=== PATIENT | female | born 1990 | race African-American/Black ===

== ENCOUNTER 2025-01-05 17:00 | Inpatient (IN) | payer MEDICARE ==
[~2025-01-05] VITALS: Ht 152.4 cm; Wt 89.8 kg
[2025-01-05] MEDS ORDERED: ZOLPIDEM TARTRATE 10 MG TABLET PO PRN (18:15)
[2025-01-05 18:45] LABS: COVID AG,FIA SOURCE NASAL SWAB
[2025-01-05 18:51] LABS: APPEARANCE,URINE CLEAR (CLEAR); GLUCOSE, URINE (UA) NEGATIVE (NEGATIVE); LEUKOCYTE ESTERASE ,URINE NEGATIVE (NEGATIVE); NITRATE,URINE NEGATIVE (NEGATIVE); OCCULT BLOOD,URINE NEGATIVE (NEGATIVE); SPECIFIC GRAVITIY, URINE 1.006 (1.003-1.030)
[2025-01-05 18:56] LABS: PH,URINE DRUG SCREEN 5.5 (5.0-8.0)
[2025-01-05 18:57] LABS: ALCOHOL, URINE DRUG SCREEN NEGATIVE (NEGATIVE); AMPHET/METH SCREEN,URINE NEGATIVE (NEGATIVE); BARBITURATE SCREEN, URINE NEGATIVE (NEGATIVE); CANNABINOID SCREEN,URINE POSITIVE (NEGATIVE); COCAINE SCREEN,URINE NEGATIVE (NEGATIVE); METHADONE SCREEN, URINE NEGATIVE (NEGATIVE)
[2025-01-05 19:07] LABS: SARS-COV2 (COVID) ANTIGEN,FIA Negative (Negative)
[2025-01-05] MEDS: LITHIUM CARBONATE 300 MG CAPSULE PO ONE (19:12)
[2025-01-05 19:42] LABS: PLATELET COUNT (AUTO) 320 K/uL (150-450); RED BLOOD CELL COUNT(AUTO) 4.57 MIL/uL (4.00-5.20); RED CELL DISTRIBUTION WIDTH 19.2 % (11.5-14.5); WHITE BLOOD COUNT (AUTO) 8.7 K/uL (4.5-11.0)
[2025-01-05 19:46] LABS: CALCIUM, TOTAL 8.9 mg/dL (8.8-10.5); CREATININE 0.80 mg/dL (0.60-1.30); GLOMERULAR FILTR. RATE CALC > 60 mL/min (>60); GLUCOSE,RANDOM 123 mg/dL (70-110); SODIUM SERUM 138 mmol/L (136-145); UREA NITROGEN, BLOOD 8 mg/dL (7-18)
[2025-01-05 20:48] VITALS: O2SAT 97
[2025-01-06 00:33] VITALS: RESP 17
[2025-01-06] MEDS ORDERED: NICOTINE 14 MG/24 HOUR PATCH TD PRN (06:45)
[2025-01-06] MEDS ORDERED: ACETAMINOPHEN 325 MG TABLET PO PRN (06:45)
[2025-01-06] MEDS ORDERED: MAGNESIUM HYDROXIDE SUSPENSION 30 ML UDCUP PO PRN (06:45)
[2025-01-06] MEDS ORDERED: ALBUTEROL SULFATE HFA 90 MCG/PUFF 8 GM INHALER IH PRN (06:45)
[2025-01-06] MEDS ORDERED: GuaiFENesin/D-METHORPHAN [SUGAR-FREE] 200-20MG/10 ML SYRUP UDCUP PO PRN (06:45)
[2025-01-06] MEDS ORDERED: PETROLATUM,WHITE 28 GM JELLY TP PRN (06:45)
[2025-01-06] MEDS ORDERED: MAG HYDROX/ALUMINUM HYD/SIMETH ES 30 ML SUSPENSION UDCUP PO PRN (06:45)
[2025-01-06 08:27] VITALS: BP 121/93; PULSE 80; RESP 18; TEMP 97.7; O2SAT 99
[2025-01-06] MEDS ORDERED: LITH300C3 PO (09:33)
[2025-01-06] MEDS ORDERED: QUET100T34 PO (09:33)
[2025-01-06] MEDS ORDERED: QUET200T PO (09:40)
[2025-01-06 09:44] LABS: CHOL/HDL RATIO 3.9 (3.9-5.7); LDL CHOL (CALC.) 143.0 mg/dL (0-130)
[2025-01-06 20:22] VITALS: RESP 18
[2025-01-06] MEDS: LITHIUM CARBONATE 300 MG CAPSULE PO SCH (21:08)
[2025-01-07 08:12] VITALS: BP 126/80; PULSE 98; RESP 16; TEMP 98.6; O2SAT 98
[2025-01-07 20:49] VITALS: BP 106/62; PULSE 80; RESP 18; TEMP 98; O2SAT 100
[2025-01-08 08:25] VITALS: BP 116/83; PULSE 75; RESP 18; TEMP 97.8; O2SAT 99
== END 2025-01-08 14:57 | disposition home or self-care (01) | DRG 885 ==
LOC: EMS 17:00 → B3A 23:19 → EMS 23:19 → B3A 23:24
PROVIDERS: ADMIT Psychiatry & Neurology Psychiatry; ATTEND Psychiatry & Neurology Psychiatry
PROC: GZHZZZZ Group Psychotherapy (ICD-10-PCS; principal; 2025-01-06)
DX: F25.0 Schizoaffective disorder, bipolar type (principal); R45.851 Suicidal ideations; F12.10 Cannabis abuse, uncomplicated; D64.9 Anemia, unspecified; R73.9 Hyperglycemia, unspecified; E78.5 Hyperlipidemia, unspecified; E66.3 Overweight; Z79.899 Other long term (current) drug therapy; Z20.822 Contact with and (suspected) exposure to COVID-19; Z91.51 Personal history of suicidal behavior; Z88.6 Allergy status to analgesic agent; Z91.018 Allergy to other foods; Z68.38 Body mass index [BMI] 38.0-38.9, adult
CPT/HCPCS: 80048; 80061; 80178; 80307; 81003; 83036; 84443; 84703; 85025; G0480